=== PATIENT | male | born 1960 | race Two or more races ===

== ENCOUNTER 2016-12-13 00:35 | Emergency (ER) | payer SELFPAY ==
--- NOTE | 2016-12-13 00:45 | ED PDOC ---
Arrival/HPI - General Time Seen by Provider: 12/13/16 00:44 - History of Present Illness Narrative History of Present Illness (Text): 12/13/16 00:26 Family/Social History - Physician Review Nursing Documentation Reviewed: Yes Family/Social History: Unknown Family HX Review of Systems - Review of Systems Systems not reviewed;Unavailable: Other (Cardiac arrest) Physical Exam Vital Signs Reviewed: Yes Temperature: Afebrile Pulse: Pulseless Respiratory Rate: Apneic Pain Distress: None Mental Status: Positive for: other (Unresponsive) Medical Decision Making ED Course and Treatment: 12/13/16 00:26 - Scribe Statement The provider has reviewed the documentation as recorded by the Scribe Naomi Arellano Provider Scribe Attestation: All medical record entries made by the Scribe were at my direction and personally dictated by me. I have reviewed the chart and agree that the record accurately reflects my personal performance of the history, physical exam, medical decision making, and the department course for this patient. I have also personally directed, reviewed, and agree with the discharge instructions and disposition.
--- NOTE | 2016-12-13 01:15 | ED PDOC ---
Arrival/HPI - General Time Seen by Provider: 12/13/16 00:44 Historian: EMS - History of Present Illness Narrative History of Present Illness (Text): 12/13/16 00:27 Hunter Mark, with unknown past medical history, who presents to the Emergency department brought in by ALS, CPR in progress, status post cardiac arrest. As per EMS, patient was found lying next to a car outside with unknown downtime. EMS arrived on the scene, patient noted to by pulseless, asystolic, and unresponsive in full cardiac arrest. ACLS protocol/CPR was initiated, patient was intubated and had an IO placed in right leg. Patient was given 5 rounds of Epi in the field, but remained asystolic, pulseless, and cyanotic. Limited HPI and ROS due to cardiac arrest. Time/Duration: Prior to Arrival Symptom Onset: Sudden Symptom Course: Unchanged Severity Level: Severe Context: Street Past Medical History - Provider Review Nursing Documentation Reviewed: Yes Family/Social History - Physician Review Nursing Documentation Reviewed: Yes Family/Social History: Unknown Family HX Allergies/Home Meds Allergies/Adverse Reactions: Allergies Unobtainable Allergy (Verified 12/13/16 04:31) Home Medications: Home Meds Medication Instructions Recorded Confirmed Unobtainable 12/13/16 12/13/16 Review of Systems - Review of Systems Systems not reviewed;Unavailable: Other (Cardiac arrest) Physical Exam - Physical Exam Physical Exam Limitations: Other (unresponsive) Vital Signs Reviewed: Yes Temperature: Afebrile Blood Pressure: Hypotensive Pulse: Pulseless Respiratory Rate: Apneic Mental Status: Positive for: Comatose - Systems Exam Head: Present: Atraumatic, Normocephalic Pupils: Present: Other (pupils fixed/dilated) Mouth: Present: Other (ET tube in place/small amount vomitus present perioral) Respiratory/Chest: Present: Other (Bilateral equal BS) Cardiovascular: Present: Other (no rate/rhythm) Abdomen: Present: Distention (mild) Upper Extremity: No: Edema Lower Extremity: No: Edema Neurological: Present: Other (unresponsive to painful stimuli) Skin: Present: Cold, Pale Medical Decision Making ED Course and Treatment: 12/13/16 00:27 Impression: 56 year old male brought in by ALS, CPR in progress, s/p cardiac arrest. Unknown downtime, Pt pulseless, asystolic, and cyanoticl ACLS protocol initiated in the field. Pt intubated in the field, IO placed in right lower extremity. Pt given 5 rounds of Epi. Differential Diagnosis included but are not limited to: cardiac arrest Plan: -- Reassess and disposition Progress Notes: Upon arrival to Emergency department, ACLS continued. Pt unresponsive to all chemical resuscitative efforts. Pt remained asystolic/pulseless throughout. Pt subsequently pronounced. Time of : 00:43. 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 Central line attempted in right and left femoral by medical interpreter. - Scribe Statement The provider has reviewed the documentation as recorded by the Dellaibleslie Arellano Provider Scribe Attestation: All medical record entries made by the Scribe were at my direction and personally dictated by me. I have reviewed the chart and agree that the record accurately reflects my personal performance of the history, physical exam, medical decision making, and the department course for this patient. I have also personally directed, reviewed, and agree with the discharge instructions and disposition. Disposition/Present on Arrival - Present on Arrival Any Indicators Present on Arrival: No History of DVT/PE: No History of Uncontrolled Diabetes: No Urinary Catheter: No History of Decub. Ulcer: No History Surgical Site Infection Following: None - Disposition Have Diagnosis and Disposition been Completed?: Yes Diagnosis: Cardiac arrest Disposition: WITH WITHOUT AUTOPSY Forms: [employer] (Lithuanian)
== END 2016-12-13 04:39 ==
LOC: ED 00:35
DX: I46.9 Cardiac arrest, cause unspecified (principal)